=== PATIENT | female | born 1995 | race African-American/Black ===

== ENCOUNTER 2017-06-12 01:46 | Emergency (ER) | payer SELFPAY ==
[~2017-06-12] VITALS: Ht 165.1 cm; Wt 68.0 kg
[~2017-06-12 01:46] MED LIST: 'XANAX0.25 MG PO; ALBUTEROL0.09 MG/A2 INH; BENTYL10 MG PO; CLEOCIN150 MG PO; CLINDAMYCIN HC300 MG PO; DEPO SHOT; IBUPROFEN600 MG PO; KEFLEX500 MG PO; MOTRIN400 MG PO; MOTRIN600 MG PO; MOTRIN800 MG PO; NKHM; PHENERGAN25 M1 PO; TRIMOX500 MG PO; TYLENOL W/CODEI1 TA2 PO; ZANTAC PO; ZANTAC150 MG PO; ZITHROMAX Z PA250 MG PO; ZITHROMAX250 MG PO; ZOFRAN ODT4 MG SL; ZYRTEC PO; ZYRTEC5 M1 PO
[2017-06-12 01:53] VITALS: BP 136/68
[2017-06-12 02:08] LABS: BILIRUBIN NEGATIVE (NEGATIVE); BLOOD NEGATIVE (NEGATIVE); CLARITY SL CLOUDY (CLEAR); COLOR YELLOW (YELLOW); GLUCOSE NEGATIVE (NEGATIVE); KETONE TRACE (NEGATIVE); LEUKO ESTERASE NEGATIVE (NEGATIVE); NITRITE NEGATIVE (NEGATIVE); PH 5.5 (5.0-9.0); SPECIFIC GRAVITY 1.025 (1.005-1.030)
[2017-06-12 02:29] LABS: BACTERIA 3+; EPITHELIAL CELLS 20-25
[2017-06-12] MEDS ORDERED: MACROBID100 M1 PO (03:03)
== END 2017-06-12 02:56 | disposition home or self-care (01) ==
LOC: ED 01:46
PROVIDERS: Emergency Medicine
DX: O23.11 Infections of bladder in pregnancy, first trimester (principal); Z3A.01 Less than 8 weeks gestation of pregnancy; Z88.0 Allergy status to penicillin; Z88.1 Allergy status to other antibiotic agents; Z79.899 Other long term (current) drug therapy

== ENCOUNTER → 2017-07-16 | Outpatient (CLI) | payer MEDICAID ==
[~2017-07-16] MED LIST changes: +MACROBID100 M1 PO
== END | disposition home or self-care (01) ==
LOC: US 10:00
DX: Z34.81 Encounter for supervision of other normal pregnancy, first trimester (principal); Z33.1 Pregnant state, incidental; Z3A.10 10 weeks gestation of pregnancy

== ENCOUNTER 2017-11-18 15:36 | Emergency (ER) | payer OTHER ==
[~2017-11-18] VITALS: Wt 75.7 kg
[2017-11-18 15:36] VITALS: BP 111/66
== END 2017-11-18 16:50 | disposition home or self-care (01) ==
LOC: ED 15:36
DX: O99.513 Diseases of the respiratory system complicating pregnancy, third trimester (principal); O26.893 Other specified pregnancy related conditions, third trimester; J02.9 Acute pharyngitis, unspecified; R11.0 Nausea; Z88.0 Allergy status to penicillin; Z88.1 Allergy status to other antibiotic agents; Z3A.28 28 weeks gestation of pregnancy

== ENCOUNTER → 2018-01-26 | Outpatient (CLI) | payer OTHER ==
[~2018-01-26] MED LIST changes: +CEPHALEXIN500 M1 PO
== END | disposition home or self-care (01) ==
LOC: US 17:00
DX: Z34.93 Encounter for supervision of normal pregnancy, unspecified, third trimester (principal); Z3A.37 37 weeks gestation of pregnancy

== ENCOUNTER 2019-02-15 18:12 | Emergency (ER) | payer OTHER ==
[~2019-02-15] VITALS: Ht 165.1 cm; Wt 77.1 kg
[~2019-02-15 18:12] MED LIST changes: +CETIRIZINE HYDR10 MG PO; +CHLORHEXIDINE473 M1 PO; +CIPRO500 MG PO; +DAILY VITE WIT1 EACH PO; +IBU800 M1 PO; +METHYLPRED-DP4 MG PO; +OMEPRAZOLE40 MG PO; +PYRIDIUM200 M1 PO
[2019-02-15 18:16] VITALS: BP 132/87
[2019-02-15 19:29] LABS: BILIRUBIN NEGATIVE (NEGATIVE); BLOOD NEGATIVE (NEGATIVE); CLARITY CLEAR (CLEAR); COLOR YELLOW (YELLOW); GLUCOSE NEGATIVE (NEGATIVE); KETONE NEGATIVE (NEGATIVE); LEUKO ESTERASE NEGATIVE (NEGATIVE); NITRITE NEGATIVE (NEGATIVE); SPECIFIC GRAVITY 1.015 (1.005-1.030); UROBILINOGEN 0.2 E.U./dl (0.2-1.0)
[2019-02-15 19:30] LABS: BACTERIA TRACE; EPITHELIAL CELLS 15-20; RBC 0-2 rbc/hpf (0-2); WBC 0-2 wbc/hpf (0-5)
[2019-02-15] MEDS ORDERED: ZOFRAN4 MG PO (20:25)
[2019-02-17 00:04] LABS: GONOCOCCUS BY NAA Negative (Negative)
== END 2019-02-15 20:32 | disposition home or self-care (01) ==
LOC: ED 18:12
PROVIDERS: Physician Assistant
DX: A08.4 Viral intestinal infection, unspecified (principal); Z88.0 Allergy status to penicillin; Z88.1 Allergy status to other antibiotic agents; Z79.899 Other long term (current) drug therapy; Z79.2 Long term (current) use of antibiotics

== ENCOUNTER 2019-03-01 18:43 | Emergency (ER) | payer OTHER ==
[~2019-03-01] VITALS: Ht 165.1 cm; Wt 81.6 kg
[~2019-03-01 18:43] MED LIST changes: +ZOFRAN4 MG PO
[2019-03-01 18:46] VITALS: BP 136/73
[2019-03-01 20:02] LABS: BILIRUBIN NEGATIVE (NEGATIVE); BLOOD 3+ (NEGATIVE); CLARITY CLEAR (CLEAR); COLOR YELLOW (YELLOW); GLUCOSE NEGATIVE (NEGATIVE); KETONE NEGATIVE (NEGATIVE); LEUKO ESTERASE NEGATIVE (NEGATIVE); NITRITE NEGATIVE (NEGATIVE); PH 7.5 (5.0-9.0); SPECIFIC GRAVITY 1.015 (1.005-1.030); UROBILINOGEN 0.2 E.U./dl (0.2-1.0)
[2019-03-01 20:10] LABS: BACTERIA 1+; WBC 0-2 wbc/hpf (0-5)
== END 2019-03-01 19:58 | disposition home or self-care (01) ==
LOC: ED 18:43
PROVIDERS: Physician Assistant
DX: R10.9 Unspecified abdominal pain (principal); R14.0 Abdominal distension (gaseous); J45.909 Unspecified asthma, uncomplicated; K21.9 Gastro-esophageal reflux disease without esophagitis; Z88.0 Allergy status to penicillin; Z88.1 Allergy status to other antibiotic agents; Z79.899 Other long term (current) drug therapy; Z79.2 Long term (current) use of antibiotics

== ENCOUNTER → 2019-06-02 | Outpatient (CLI) | payer OTHER | END | disposition home or self-care (01) | LOC: LAB 12:16 | DX: N39.0 Urinary tract infection, site not specified (principal) ==

== ENCOUNTER → 2020-02-26 | Outpatient (CLI) | payer OTHER | END | disposition home or self-care (01) | LOC: COVID19 14:11 | PROVIDERS: ATTEND Pediatrics | DX: U07.1 COVID-19 (principal) ==

== ENCOUNTER 2022-01-24 11:35 | Emergency (ER) | payer OTHER ==
[~2022-01-24] VITALS: Ht 165.1 cm; Wt 74.8 kg
[2022-01-24 11:44] VITALS: BP 122/75
[2022-01-24 12:05] LABS: BASO % 0.1 % (0.0-1.0); EOS # 0.1 10*3/uL (0.0-0.4); EOS % 0.7 % (1.0-4.0); HEMATOCRIT 38.1 % (37.0-47.0); LYMPH # 1.2 10*3/uL (1.3-4.4); LYMPH % 14.2 % (27.0-41.0); MEAN CORPUSCULAR HGB 28.3 pg (27.0-31.0); MEAN CORPUSCULAR HGB CONC 34.1 g/dl (33.0-37.0); MEAN PLATELET VOLUME 8.9 fl (9.6-12.3); MONO # 0.6 10*3/uL (0.1-1.0); MONO % 7.2 % (3.0-9.0); NEUT # 6.6 10*3/uL (2.3-7.9); NEUT % 77.6 % (47.0-73.0); PLATELET COUNT AUTOMATED 374 10*3/uL (130-400); RED BLOOD COUNT 4.59 10*6/uL (4.10-5.10); RED CELL DISTRI WIDTH 14.5 % (0-14.5); WHITE BLOOD COUNT 8.5 10*3/uL (4.8-10.8)
[2022-01-24 12:25] LABS: ALKALINE PHOSPHATASE 75 U/L (45-117); BUN 15 mg/dl (7-24); CHLORIDE 107 mmol/L (98-107); CREATININE 0.88 mg/dL (0.55-1.02); POTASSIUM 3.9 mmol/L (3.5-5.1); SGOT/AST 19 IU/L (3-35); SGPT/ALT 25 U/L (12-78); SODIUM 141 mmol/L (136-145)
[2022-01-24 12:43] LABS: BILIRUBIN Negative (Negative); BLOOD Negative (Negative); CLARITY Cloudy (Clear); COLOR Yellow (Yellow); GLUCOSE Negative (Negative); KETONE Negative (Negative); LEUKO ESTERASE 2+ (Negative); NITRITE Negative (Negative); SPECIFIC GRAVITY 1.025 (1.001-1.030); UROBILINOGEN 0.2 E.U./dl (0.0-1.0)
[2022-01-24 12:52] LABS: BACTERIA 2+; EPITHELIAL CELLS 31-40; MUCOUS 1+
[2022-01-24] MEDS ORDERED: DICYCLOMINE HCL10 MG PO (13:14)
[2022-01-24] MEDS ORDERED: SEPTDS PO (13:14)
== END 2022-01-24 13:20 | disposition home or self-care (01) ==
LOC: ED 11:35
PROVIDERS: Physician Assistant
DX: N39.0 Urinary tract infection, site not specified (principal)

== ENCOUNTER 2022-02-28 10:25 | Emergency (ER) | payer OTHER ==
[~2022-02-28] VITALS: Ht 165.1 cm; Wt 74.8 kg
[~2022-02-28 10:25] MED LIST changes: +DICYCLOMINE HCL10 MG PO; +SEPTDS PO
[2022-02-28 10:42] VITALS: BP 127/68
[2022-02-28 11:30] LABS: BASO % 0.5 % (0.0-1.0); EOS % 0.9 % (1.0-4.0); LYMPH # 1.2 10*3/uL (1.3-4.4); LYMPH % 28.3 % (27.0-41.0); MEAN CELL VOLUME 83.7 fl (81.0-99.0); MEAN CORPUSCULAR HGB 28.1 pg (27.0-31.0); MEAN CORPUSCULAR HGB CONC 33.6 g/dl (33.0-37.0); MEAN PLATELET VOLUME 8.8 fl (9.6-12.3); MONO # 0.3 10*3/uL (0.1-1.0); MONO % 6.6 % (3.0-9.0); NEUT # 2.7 10*3/uL (2.3-7.9); NEUT % 63.5 % (47.0-73.0); PLATELET COUNT AUTOMATED 420 10*3/uL (130-400); RED CELL DISTRI WIDTH 14.6 % (0-14.5); WHITE BLOOD COUNT 4.3 10*3/uL (4.8-10.8)
[2022-02-28 11:42] LABS: ACT PARTIAL THROMBO TIME 28.2 SECONDS (20.0-32.1)
[2022-02-28 11:44] LABS: BILIRUBIN Negative (Negative); BLOOD 3+ (Negative); CLARITY Cloudy (Clear); COLOR Red (Yellow); GLUCOSE Negative (Negative); KETONE Negative (Negative); LEUKO ESTERASE Trace (Negative); NITRITE Negative (Negative); PH 7.5 (4.5-8.0); SPECIFIC GRAVITY 1.015 (1.001-1.030); UROBILINOGEN 0.2 E.U./dl (0.0-1.0)
[2022-02-28 11:46] LABS: ALKALINE PHOSPHATASE 75 U/L (45-117); BUN 11 mg/dl (7-24); CHLORIDE 109 mmol/L (98-107); CREATININE 0.72 mg/dL (0.55-1.02); LIPASE 67 U/L (73-393); POTASSIUM 3.8 mmol/L (3.5-5.1); SGPT/ALT 29 U/L (12-78); SODIUM 142 mmol/L (136-145); TOTAL PROTEIN 7.7 gm/dL (6.4-8.2)
[2022-02-28 11:54] LABS: RBC 31-40 rbc/hpf (0-2)
== END 2022-02-28 15:06 | disposition home or self-care (01) ==
LOC: ED 10:25
PROVIDERS: Family Medicine
DX: R10.13 Epigastric pain (principal); Z88.0 Allergy status to penicillin; Z88.1 Allergy status to other antibiotic agents; Z79.899 Other long term (current) drug therapy

== ENCOUNTER 2024-06-08 11:51 | Emergency (ER) | payer OTHER ==
[~2024-06-08] VITALS: Ht 165.1 cm; Wt 76.2 kg
[2024-06-08 12:01] VITALS: BP 124/67
[2024-06-08] MEDS ORDERED: GNP PRENATAL 28-0.8 (12:02)
[2024-06-08] MEDS ORDERED: ASPIRIN81 M1 PO (12:03)
== END 2024-06-08 15:29 | disposition home or self-care (01) ==
LOC: ED 11:51
DX: O9A.213 Injury, poisoning and certain other consequences of external causes complicating pregnancy, third trimester (principal); S93.402A Sprain of unspecified ligament of left ankle, initial encounter; R60.0 Localized edema; Z79.899 Other long term (current) drug therapy; Z79.82 Long term (current) use of aspirin; Z3A.29 29 weeks gestation of pregnancy; W18.09XA Striking against other object with subsequent fall, initial encounter; Y93.89 Activity, other specified; Y92.89 Other specified places as the place of occurrence of the external cause; Y99.8 Other external cause status

== ENCOUNTER 2024-07-15 16:20 | Emergency (ER) | payer OTHER ==
[~2024-07-15] VITALS: Ht 165.1 cm; Wt 77.1 kg
[~2024-07-15 16:20] MED LIST changes: +ASPIRIN81 M1 PO; +GNP PRENATAL 28-0.8
[2024-07-15 17:26] VITALS: BP 110/72
[2024-07-15 17:46] LABS: BILIRUBIN Negative (Negative); BLOOD Negative (Negative); CLARITY Clear (Clear); COLOR Yellow (Yellow); GLUCOSE Negative (Negative); KETONE Negative (Negative); LEUKO ESTERASE Trace (Negative); NITRITE Negative (Negative); UROBILINOGEN 0.2 E.U./dl (0.0-1.0)
[2024-07-15 17:46] LABS: BASO % 0.1 % (0.0-1.0); EOS % 0.3 % (1.0-4.0); HEMATOCRIT 34.8 % (37.0-47.0); MEAN CELL VOLUME 86.8 fl (81.0-99.0); MEAN CORPUSCULAR HGB 28.9 pg (27.0-31.0); MEAN CORPUSCULAR HGB CONC 33.3 g/dl (33.0-37.0); MEAN PLATELET VOLUME 9.5 fl (9.6-12.3); MONO # 0.7 10*3/uL (0.1-1.0); NEUT # 7.4 10*3/uL (2.3-7.9); PLATELET COUNT AUTOMATED 301 10*3/uL (130-400); RED BLOOD COUNT 4.01 10*6/uL (4.10-5.10); RED CELL DISTRI WIDTH 14.7 % (0-14.5); WHITE BLOOD COUNT 9.6 10*3/uL (4.8-10.8)
[2024-07-15 17:55] LABS: BACTERIA 1+
[2024-07-15 18:06] LABS: ALKALINE PHOSPHATASE 199 U/L (46-116); BUN 10 mg/dl (9-23); CHLORIDE 104 mmol/L (98-107); POTASSIUM 3.7 mmol/L (3.4-5.1); SGPT/ALT 12 U/L (5-49); TOTAL PROTEIN 6.6 gm/dL (6.0-8.0)
== END 2024-07-15 18:27 | disposition home or self-care (01) ==
LOC: ED 16:20
PROVIDERS: Physician Assistant Medical
DX: O36.8130 Decreased fetal movements, third trimester, not applicable or unspecified (principal); Z79.82 Long term (current) use of aspirin; Z3A.35 35 weeks gestation of pregnancy

== ENCOUNTER 2024-08-14 11:08 | Emergency (ER) | payer OTHER ==
[~2024-08-14] VITALS: Ht 165.1 cm; Wt 81.6 kg
[2024-08-14 11:21] VITALS: BP 123/80
[2024-08-14] MEDS ORDERED: OXYCODONE HCL5 M2 PO (11:23)
[2024-08-14] MEDS ORDERED: 8 HOUR PAIN RE650 M1 PO (11:23)
[2024-08-14] MEDS ORDERED: Motrin,Rufen800 MG PO (11:24)
[2024-08-14] MEDS ORDERED: diphenhydrAMINE hydrochloride 50 MG/ML VIAL IV ONE (11:30)
[2024-08-14] MEDS ORDERED: Dexamethasone Sodium Phospha 20 MG/5 ML VIAL IV ONE (11:30)
[2024-08-14] MEDS ORDERED: Ketorolac Tromethamine 30 MG/ML VIAL IV ONE (11:30)
[2024-08-14] MEDS ORDERED: SODIUM CHLORIDE 0.9% 1,000 ML IV ONE (11:30)
[2024-08-14] MEDS ORDERED: Metoclopramide Hydrochloride 10 MG/2 ML VIAL IV ONE (11:30)
== END 2024-08-14 13:12 | disposition home or self-care (01) ==
LOC: ED 11:08
DX: O90.89 Other complications of the puerperium, not elsewhere classified (principal); R51.9 Headache, unspecified; H53.149 Visual discomfort, unspecified; Z79.82 Long term (current) use of aspirin; Z79.899 Other long term (current) drug therapy